=== PATIENT | male | born 1980 | race Caucasian/White ===

== ENCOUNTER → 2021-01-29 | Outpatient (CLI) | payer SELFPAY ==
--- NOTE | 2021-01-29 | ASPS_PTH ---
PATIENT: SMITA SOMERS LOC: [facility] U#:[id number] AGE/SX: 40/M ROOM: RE01/29/[address]: Dr. Matthew Wyman MD : 1980 BED: DIS: 01/29/2021 SPEC #: [id number] RECD: 01/29/21 14:15 STATUS: CRHISTY GIUSEPPE #: [id number] SANJANA: 01/29/21 00:[address]: Matthew Wyman DEPT: CYTOLOGY RECD BY: Roberto Elder ENTERED: 02/01/21 08:10 SP TYPE: ASPIRATION OTHR DR: Dr. Indira Padilla MD Tissues: Thyroid gland, NOS Procedures: Special Stain Group II Cytology Other HEADER OPERATION: Right thyroid FNA PRE-OP DIAGNOSIS: Right thyroid nodule TISSUE SUBMITTED: Right thyroid slides x8 DIAGNOSIS CYTOLOGY Fine needle aspiration, right thyroid nodule (smears): Adequate for evaluation. Negative, consistent with benign colloid/follicular nodule. AM:ivett 02/02/2021 CYTOLOGY STUDY Slides are reviewed. CYTOLOGY GROSS Received are eight smears labeled with the patient's name and designated per the requisition as right thyroid. Submitted for staining. / ivett 02/01/2021 TC:5 CPT: 48910
[2021-01-29 12:28] VITALS: BMI 38.0
== END | disposition home or self-care (01) ==
LOC: LABSPEC 14:20
PROVIDERS: PCP Internal Medicine; Referring Provider Surgery; Visit Provider Surgery
DX: E04.1 Nontoxic single thyroid nodule (principal)
CPT/HCPCS: 88161; 88313